=== PATIENT | male | born 1950 | race Caucasian/White ===

== ENCOUNTER 2024-11-23 06:23 | Day surgery (SDC) | payer MEDICARE, BC, SELFPAY | END 2024-11-23 16:52 | disposition home or self-care (01) | LOC: GI 06:23 | PROVIDERS: ATTENDING PHYSICIAN Internal Medicine Gastroenterology | DX: Z12.11 Encounter for screening for malignant neoplasm of colon (principal); K57.30 Diverticulosis of large intestine without perforation or abscess without bleeding; K64.9 Unspecified hemorrhoids | CPT/HCPCS: G0121 ==

== ENCOUNTER → 2024-12-31 12:25 | Outpatient (REF) | payer MEDICARE, BC, SELFPAY | LOC: HWRAD 12:25 | PROVIDERS: ATTENDING PHYSICIAN Urology; FAMILY PHYSICIAN Internal Medicine; REFERRING PHYSICIAN Urology | DX: C67.9 Malignant neoplasm of bladder, unspecified (principal) | CPT/HCPCS: 74178; Q9967 ==